=== PATIENT | male | born 1960 | race African-American/Black ===

== ENCOUNTER 2020-04-20 12:24 | Emergency (ER) | payer OTHER ==
[2020-04-20 12:29] VITALS: BP 140/93; PULSE 75; TEMP 97.9; BMI 30.1
== END 2020-04-20 13:40 | disposition home or self-care (01) ==
LOC: JER 12:24 → JERFT 12:24
DX: L25.9 Unspecified contact dermatitis, unspecified cause (principal)
CPT/HCPCS: 99283-25; C9803; U0003

== ENCOUNTER 2020-07-05 08:17 | Emergency (ER) | payer OTHER ==
[2020-07-05 08:46] VITALS: BP 145/96; PULSE 87; TEMP 98; BMI 25.8
[2020-07-05] MEDS ORDERED: KETOROLAC TROMETHAMINE 60 MG/2 ML VIAL IM ONE (09:20)
[2020-07-05] MEDS ORDERED: INDOMETHACIN 50 MG CAPSULE PO ONE (09:21)
[2020-07-05 11:17] LABS: BASO % 0.4 % (0-2.0); EOS % 3.2 % (0-4.5); HEMATOCRIT 40.2 % (35.4-49); LYMPH % 31.9 % (8-40); MCH 28.7 pg (25.7-33.7); MCHC 32.3 g/dl (32.0-35.9); MEAN CELL VOLUME 88.8 fl (80-96); MEAN PLT VOLUME 10.1 fl (7.5-11.1); MONO % 7.9 % (3.8-10.2); NEUT % 56.6 % (42.8-82.8); PLATELET COUNT 215 K/MM3 (134-434); POTASSIUM 4.4 mmol/L (3.5-5.1); RBC 4.53 M/mm3 (4.00-5.60); RDW 14.3 % (11.9-15.9); WHITE BLOOD COUNT 5.7 K/mm3 (4.0-10.0)
[2020-07-05 11:20] LABS: CALCIUM 9.1 mg/dL (8.5-10.1)
[2020-07-05 11:21] LABS: BLOOD UREA NITROGEN 20.3 mg/dL (7-18)
[2020-07-05 11:23] LABS: URIC ACID 7.5 mg/dL (2.6-7.2)
[2020-07-05 11:25] LABS: BILIRUBIN,TOTAL 0.3 mg/dL (0.2-1); TOT PROT 7.8 g/dl (6.4-8.2)
[2020-07-05 12:23] LABS: ERYTHROCYTE SEDIMENTATION RATE 3 mm/hr (0-20)
== END 2020-07-05 12:39 | disposition home or self-care (01) ==
LOC: JER 08:17
PROC: 3E0233Z Introduction of Anti-inflammatory into Muscle, Percutaneous Approach (ICD-10-PCS; principal; 2020-07-05)
DX: M10.9 Gout, unspecified (principal)
CPT/HCPCS: 36415; 73630-TC-RT-FY; 80053; 84550; 85025; 85651; 86140; 99284-25